=== PATIENT | female | born 1985 | race Caucasian/White ===

== ENCOUNTER 2019-09-21 19:05 | Emergency (ER) | payer OTHER, SELFPAY ==
[2019-09-21 20:24] LABS: Absolute Lymphocytes (CBC) 1.4 K/uL (0.7-4.9); Basophils % 0.5 % (0-1.3); Hematocrit 37.3 % (36.0-45.0); Lymphocytes % 17.8 % (15.3-44.8); MPV 8.1 fL (7.6-11.3); RBC Red Blood Cell Count 4.14 M/uL (3.86-4.86)
[2019-09-21 20:35] LABS: Potassium 4.2 mmol/L (3.5-5.1)
[2019-09-21 21:53] LABS: Urine Blood NEGATIVE (NEG); Urine Glucose NEGATIVE (NEG); Urine Protein NEGATIVE (NEG); Urine Specific Gravity 1.015 (1.005-1.030)
[2019-09-21] MEDS ORDERED: IBUPROFEN 200 MG TAB PO ONE (21:59)
[2019-09-21] MEDS ORDERED: IBUPROFEN 400 MG TAB ONE (21:59)
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
[2019-09-21] MEDS ORDERED: HYDROCODONE/APAP 5/325 MG TAB ONE (23:05)
[2019-09-21] MEDS ORDERED: CYCLOBENZAPRINE 10 MG TAB ONE (23:05)
[2019-09-21 23:45] VITALS: TEMP 98.6
[2019-09-21 23:49] VITALS: BP 125/83; O2SAT 100
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
== END 2019-09-21 23:33 | disposition home or self-care (01) ==
LOC: ER 19:05
DX: S00.90XA Unspecified superficial injury of unspecified part of head, initial encounter (principal); N39.0 Urinary tract infection, site not specified; R10.9 Unspecified abdominal pain; V48.5XXA Car driver injured in noncollision transport accident in traffic accident, initial encounter
CPT/HCPCS: 36415; 70450; 71260; 72125; 74177; 80048; 81003; 81025; 85025; 86850; 86900; 86901; 99284; Q9967